=== PATIENT | female | born 1970 | race African-American/Black ===

== ENCOUNTER 2017-11-21 13:57 | Inpatient (IN) ==
[2017-11-21] MEDS ORDERED: ASPIRIN 325 MG TABLET PO STA (14:46)
[2017-11-21] MEDS ORDERED: MORPHINE 2 MG/1 ML SYRINGE IV STA (14:51)
[2017-11-21] MEDS ORDERED: NITROGLYCERIN 2% OINT 1 INCH/GM PACK TOP STA (14:51)
[2017-11-21] MEDS ORDERED: ALUM/MAG/SIMETH/LIDO VISC 1:1 30 ML BOTTLE PO STA (14:51)
[2017-11-21] MEDS ORDERED: ONDANSETRON 4 MG/2 ML VIAL IV STA (14:51)
[2017-11-21] MEDS ORDERED: ONDANSETRON 4 MG/2 ML VIAL ONE (15:08)
[2017-11-21] MEDS ORDERED: NITROGLYCERIN 2% OINT 1 INCH/GM PACK TOP ONE (15:08)
[2017-11-21] MEDS ORDERED: MORPHINE 2 MG/1 ML SYRINGE ONE (15:08)
[2017-11-21] MEDS ORDERED: ALUM/MAG/SIMETH/LIDO VISC 1:1 30 ML BOTTLE PO ONE (15:09)
[2017-11-21] MEDS ORDERED: ASPIRIN 325 MG TABLET ONE (15:09)
[2017-11-21 16:10] LABS: Basophils % 0.6 % (0.0-0.8); Eosinophils # 0.2 10*3/uL (0.0-0.87); Eosinophils % 3.3 % (0.00-10.9); Hematocrit 33.5 VOL% (35.7-47.0); Hemoglobin 11.1 GM/DL (12.0-16.0); Immature Granulocytes % 0.3 %; Immature Granulocytes Absolute 0.02 #; Lymphocytes # 1.9 10*3/uL (1.4-4.0); Lymphocytes % 27.6 % (21.3-54.2); Mean Corpuscular HGB Conc 33.1 GM/DL (32-36); Mean Corpuscular Hemoglobin 30 PG (27-34); Mean Corpuscular Volume 91.5 FL (87-102); Mean Platelet Volume 11.2 FL (9.6-12.0); Monocytes # 0.9 10*3/uL (0.11-0.8); Monocytes % 12.8 % (1.7-12.7); Neutrophils # 3.7 10*3/uL (1.4-7.4); Neutrophils % 55.4 % (38.7-73.9); Platelet Count 152 T/CUMM (130-400); Red Blood Count 3.66 MC/CUMM (3.8-5.5); Red Cell Distribution Width 15.4 % (9.3-17.3); White Blood Count 6.7 T/CUMM (4-12)
[2017-11-21 16:28] LABS: PT Patient Result 10.4 SECS
[2017-11-21 16:34] LABS: Albumin 3.5 G/DL (3.4-5.0); Bilirubin,Total 0.5 MG/DL (0.2-1.0); Calcium 9.3 MG/DL (8.5-10.1); Osmolality,Calculated 275.8 MOS/KG (273-304); Potassium 4.7 MMOL/L (3.5-5.1)
[2017-11-21] MEDS ORDERED: ACETAMINOPHEN 500 MG TABLET PO PRN (17:24)
[2017-11-21] MEDS ORDERED: ALBUTEROL 2.5 MG/3 ML NEB RESP TX PRN (17:24)
[2017-11-21 18:04] LABS: Risk Ratio 2.72; VLDL CHOLESTEROL 23.4 MG/DL
[2017-11-21] MEDS: LOSARTAN 50 MG TABLET PO SCH (21:46)
[2017-11-21] MEDS: CARVEDILOL 25 MG TABLET PO SCH (21:46)
[2017-11-21] MEDS: ASPIRIN EC 81 MG TABLET PO SCH (21:46)
[2017-11-21] MEDS: ENOXAPARIN 30 MG/0.3 ML SYRINGE SUBCUT SCH (21:47)
[2017-11-22] MEDS ORDERED: ONDANSETRON 4 MG/2 ML VIAL IV PRN (04:30)
[2017-11-22 04:58] LABS: Basophils % 0.3 % (0.0-0.8); Eosinophils # 0.3 10*3/uL (0.0-0.87); Eosinophils % 3.8 % (0.00-10.9); Hematocrit 30.5 VOL% (35.7-47.0); Hemoglobin 9.9 GM/DL (12.0-16.0); Immature Granulocytes % 0.2 %; Immature Granulocytes Absolute 0.01 #; Lymphocytes # 1.9 10*3/uL (1.4-4.0); Lymphocytes % 29.3 % (21.3-54.2); Mean Corpuscular HGB Conc 32.5 GM/DL (32-36); Mean Corpuscular Hemoglobin 30 PG (27-34); Mean Corpuscular Volume 92.1 FL (87-102); Mean Platelet Volume 11.6 FL (9.6-12.0); Monocytes # 0.9 10*3/uL (0.11-0.8); Monocytes % 14.1 % (1.7-12.7); Neutrophils # 3.4 10*3/uL (1.4-7.4); Neutrophils % 52.3 % (38.7-73.9); Platelet Count 141 T/CUMM (130-400); Red Blood Count 3.31 MC/CUMM (3.8-5.5); Red Cell Distribution Width 15.5 % (9.3-17.3); White Blood Count 6.6 T/CUMM (4-12)
[2017-11-22] MEDS ORDERED: PROMETHAZINE 25 MG/1 ML VIAL IM PRN (05:14)
[2017-11-22 05:28] LABS: Albumin 3.4 G/DL (3.4-5.0); Osmolality,Calculated 280.7 MOS/KG (273-304); Potassium 5.6 MMOL/L (3.5-5.1); Total Protein 7.2 G/DL (6.4-8.3)
[2017-11-22] MEDS: ALUMINUM/MAGNES/SIMETH MAX STR 30 ML UDCUP PO PRN ×2 (08:20→10:11)
[2017-11-22] MEDS: CALCIUM ACETATE 667 MG CAPSULE PO SCH ×3 (08:21→17:50)
[2017-11-22] MEDS: CARVEDILOL 25 MG TABLET PO SCH (10:09)
[2017-11-22] MEDS: PANTOPRAZOLE 40 MG TABLET PO SCH (10:09)
[2017-11-22] MEDS: amLODIPine 10 MG TABLET PO SCH (10:09)
[2017-11-22] MEDS: ISOSORBIDE MONONITRATE 30 MG TABLET PO SCH (10:09)
[2017-11-22] MEDS: LOSARTAN 50 MG TABLET PO SCH (10:09)
[2017-11-22] MEDS: DOXAZOSIN 4 MG TABLET PO SCH (10:09)
[2017-11-22] MEDS: ASPIRIN EC 81 MG TABLET PO SCH (21:27)
[2017-11-22] MEDS: ENOXAPARIN 30 MG/0.3 ML SYRINGE SUBCUT SCH (21:27)
[2017-11-23] MEDS: CARVEDILOL 25 MG TABLET PO SCH ×3 (00:08→21:48)
[2017-11-23] MEDS: LOSARTAN 50 MG TABLET PO SCH ×3 (00:08→21:48)
[2017-11-23] MEDS: HYDROmorphone 2 MG/1 ML VIAL IV PRN ×5 (00:40→23:09)
[2017-11-23 05:10] LABS: Hematocrit 25.1 VOL% (35.7-47.0); Hemoglobin 8.3 GM/DL (12.0-16.0)
[2017-11-23] MEDS ORDERED: SODIUM CHLORIDE 0.9% 1,000 ML IV PRN ×2 (05:41→05:46)
[2017-11-23] MEDS ORDERED: PHYTONADIONE 10 MG/1 ML AMP IV ONE (06:00)
[2017-11-23] MEDS ORDERED: SODIUM CHLORIDE 0.9% 100 ML IV ONE ×2 (06:17→06:29)
[2017-11-23] MEDS: DOXAZOSIN 4 MG TABLET PO SCH (09:04)
[2017-11-23] MEDS: amLODIPine 10 MG TABLET PO SCH (09:05)
[2017-11-23] MEDS: PANTOPRAZOLE 40 MG TABLET PO SCH (09:05)
[2017-11-23] MEDS: ISOSORBIDE MONONITRATE 30 MG TABLET PO SCH (09:05)
[2017-11-23] MEDS: CALCIUM ACETATE 667 MG CAPSULE PO SCH ×3 (09:07→18:00)
[2017-11-24] MEDS: HYDROmorphone 2 MG/1 ML VIAL IV PRN ×3 (04:20→15:05)
[2017-11-24] MEDS ORDERED: SODIUM CHLORIDE 0.9% 1,000 ML IV PRN ×2 (08:55→13:41)
[2017-11-24] MEDS: LOSARTAN 50 MG TABLET PO SCH (09:45)
[2017-11-24] MEDS: ISOSORBIDE MONONITRATE 30 MG TABLET PO SCH (09:45)
[2017-11-24] MEDS: PANTOPRAZOLE 40 MG TABLET PO SCH (09:45)
[2017-11-24] MEDS: CARVEDILOL 25 MG TABLET PO SCH (09:45)
[2017-11-24] MEDS: DOXAZOSIN 4 MG TABLET PO SCH (09:45)
[2017-11-24] MEDS: amLODIPine 10 MG TABLET PO SCH (09:45)
[2017-11-24] MEDS: CALCIUM ACETATE 667 MG CAPSULE PO SCH ×3 (09:46→18:15)
[2017-11-24 13:32] LABS: Hematocrit 19.3 VOL% (35.7-47.0)
[2017-11-24 13:36] LABS: Hemoglobin 6.2 GM/DL (12.0-16.0)
[2017-11-24 16:58] VITALS: BP 149/82
[2017-11-24 17:33] LABS: Hemoglobin 8.9 GM/DL (12.0-16.0)
== END 2017-11-24 18:58 | disposition home or self-care (01) | DRG 201 ==
LOC: EDUNIT# → EDBD → N.EDINP 13:57 → N.ED 13:57 → N.TELES 19:11

== ENCOUNTER 2020-12-24 10:10 | Observation (INO) ==
[2020-12-24 12:06] LABS: Basophils % 0.4 % (0.0-0.8); Eosinophils # 0.2 10*3/uL (0.0-0.87); Eosinophils % 4.1 % (0.00-10.9); Hematocrit 26.7 VOL% (35.7-47.0); Hemoglobin 8.6 GM/DL (12.0-16.0); Immature Granulocytes % 0.2 %; Immature Granulocytes Absolute 0.01 #; Lymphocytes # 1.2 10*3/uL (1.4-4.0); Lymphocytes % 22.2 % (21.3-54.2); Mean Corpuscular HGB Conc 32.2 GM/DL (32-36); Mean Corpuscular Volume 105.5 FL (87-102); Mean Platelet Volume 11.9 FL (9.6-12.0); Monocytes % 10.9 % (1.7-12.7); Neutrophils % 62.2 % (38.7-73.9); Platelet Count 113 T/CUMM (130-400); Red Blood Count 2.53 MC/CUMM (3.8-5.5); White Blood Count 5.6 T/CUMM (4-12)
[2020-12-24 12:25] LABS: Albumin 3.5 G/DL (3.4-5.0); Bilirubin,Total 0.7 MG/DL (0.2-1.0); Calcium 9.1 MG/DL (8.5-10.1); Total Protein 6.9 G/DL (6.4-8.2)
[2020-12-24 12:31] LABS: Potassium 6.1 MMOL/L (3.5-5.1)
[2020-12-24] MEDS ORDERED: GLUCAGON 1 MG VIAL IM PRN (14:08)
[2020-12-24] MEDS ORDERED: SODIUM POLYSTYRENE SULFATE 15 GM/60 ML BOTTLE PO ONE (14:08)
[2020-12-24] MEDS ORDERED: ONDANSETRON 4 MG/2 ML VIAL IV PRN (14:08)
[2020-12-24] MEDS ORDERED: DEXTROSE 50% 25 GM/50 ML VIAL IV PRN (14:08)
[2020-12-24] MEDS ORDERED: ALBUTEROL 2.5 MG/3 ML NEB RESP TX PRN (16:19)
[2020-12-24] MEDS: HEPARIN 5,000 UNIT/1 ML VIAL SUBCUT SCH (19:06)
[2020-12-24] MEDS: carvediloL 12.5 MG TABLET PO SCH (19:06)
[2020-12-24] MEDS: SEVELAMER CARBONATE 800 MG TABLET PO SCH (20:25)
[2020-12-24] MEDS ORDERED: ACETAMINOPHEN 325 MG TABLET PO PRN (23:18)
[2020-12-24] MEDS: ACETAMINOPHEN 325 MG TABLET PO PRN (23:46)
[2020-12-25] MEDS: HEPARIN 5,000 UNIT/1 ML VIAL SUBCUT SCH ×2 (03:55→18:44)
[2020-12-25 06:01] LABS: Basophils % 0.4 % (0.0-0.8); Eosinophils # 0.2 10*3/uL (0.0-0.87); Eosinophils % 4.4 % (0.00-10.9); Hematocrit 28.5 VOL% (35.7-47.0); Hemoglobin 8.9 GM/DL (12.0-16.0); Immature Granulocytes % 0.7 %; Immature Granulocytes Absolute 0.04 #; Lymphocytes # 1.4 10*3/uL (1.4-4.0); Lymphocytes % 25.6 % (21.3-54.2); Mean Corpuscular HGB Conc 31.2 GM/DL (32-36); Mean Corpuscular Volume 110.5 FL (87-102); Mean Platelet Volume 12.1 FL (9.6-12.0); Monocytes % 14.2 % (1.7-12.7); Neutrophils % 54.7 % (38.7-73.9); Platelet Count 102 T/CUMM (130-400); Red Blood Count 2.58 MC/CUMM (3.8-5.5); White Blood Count 5.4 T/CUMM (4-12)
[2020-12-25 06:07] LABS: Albumin 3.2 G/DL (3.4-5.0); Bilirubin,Total 1.4 MG/DL (0.2-1.0); Calcium 8.4 MG/DL (8.5-10.1); Osmolality,Calculated 287.7 MOS/KG (273-304); Potassium 4.8 MMOL/L (3.5-5.1); Total Protein 6.8 G/DL (6.4-8.2)
[2020-12-25] MEDS ORDERED: DOXAZOSIN 4 MG TABLET PO SCH (09:00)
[2020-12-25] MEDS ORDERED: PANTOPRAZOLE 40 MG TABLET PO SCH (09:00)
[2020-12-25] MEDS: ACETAMINOPHEN 325 MG TABLET PO PRN (09:05)
[2020-12-25] MEDS: SEVELAMER CARBONATE 800 MG TABLET PO SCH (09:05)
[2020-12-25] MEDS: carvediloL 12.5 MG TABLET PO SCH ×2 (09:05→18:45)
[2020-12-25 16:09] VITALS: BP 128/74
== END 2020-12-25 17:40 | disposition home or self-care (01) ==
LOC: N.ED 10:10 → N.EDINP 10:10 → N.5E 18:51
PROVIDERS: ADMIT Internal Medicine; ATTEND Internal Medicine